=== PATIENT | male | born 1965 | race Caucasian/White ===

== ENCOUNTER 2016-08-11 18:06 | Emergency (ER) | payer MEDICAID, OTHER ==
--- NOTE | 2016-08-11 19:27 | ER PHYSICIAN DOCUMENTATION ---
Physician Documentation [facility] Name:Stalin Katz Age:50 yrs Sex:Male :1965 Arrival Date:08/11/2016 Time:18:06 Bed6 Private MD:Israel Horton ED, John Disposition: 08/11/16 19:08 Discharged to Home/Self Care. Impression: Back Sprain. - Condition is Good. - Discharge Instructions: BACK SPRAIN/STRAIN. - Prescriptions for Hydrocodone- Acetaminophen 5-325 mg Oral Tablet - take 1 tablet by ORAL route every 6 hours As needed; 20 tablet. - Medical Reconciliation form form. - Follow up: Israel Horton MD; When: 4- 6 days; Reason: Continuance of care. - Problem is new. - Symptoms have improved. HPI: 08/11 19:25 This 50 yrs old Male presents to ER via Walk In with complaints of Back Pain. jm 19:25 The patient presents with pain that is acute. The symptoms are located in the low back, jm lumbar area. Onset: The symptoms/episode began/occurred 2 day(s) ago. The pain does not radiate. Associated signs and symptoms: Pertinent negatives: dysuria, incontinence, numbness, tingling, urinary retention, weakness. The problem was sustained walking the dog and the dog jolted forward and pulled pt forward and he tweaked his back. . Modifying factors: the patient symptoms are aggravated by any movement, bending. Severity of symptoms: in the emergency department the symptoms are unchanged. The patient has experienced a previous episode, approximately 2 months ago. The patient has not recently seen a physician. Pt denies any other sx besides upper lumbar pain.. Historical: - Allergies: No known drug Allergies; - Home Meds: 1. None - PMHx: None; - PSHx: left wrist; - Tetanus: < 10 years. - Ebola Screening: : Patient denies exposure to infectious person. Patient denies travel to an Ebola-affected area in the 21 days before illness onset. . - Immunization history: Flu Vaccine None. - Social history: Smoking status: Patient states was never smoker of tobacco. Patient/guardian denies using alcohol. - Code Status:: Full code. ROS: 19:28 Constitutional: Negative for fever. jm 19:28 Back: Positive for injury or acute deformity, pain with movement. 19:28 MS/extremity: Negative for tenderness, tingling. 19:28 Neuro: Negative for tingling, weakness. 19:28 Psych: Negative for anxiety, depression. Exam: 19:28 Constitutional: The patient appears alert, awake. 19:28 Back: pain, that is very mild, of the lumbar area, Pt actual couldn't tell me if his spine hurt of if it was the muscles just lateral to the spine on both sides, but it was very mild at best. , ROM is normal. 19:28 Musculoskeletal/extremity: Extremities: all appear grossly normal, with no appreciated pain with palpation, grossly normal except: Weight bearing: able to fully bear weight. 19:28 Neuro: Motor: strength is 5/5 in all extremities, Sensation: is normal, Gait: is steady, Deep tendon reflexes are 2+ (normal) in the right patellar and left patellar. 19:28 Psych: Behavior/mood is pleasant, cooperative, Affect is calm. Vital Signs: 18:43 BP 97 / 73; Pulse 66; Resp 16; Temp 98; Pulse Ox 97% on R/A; Weight 83.91 kg; Height 6 lb ft. (182.88 cm); Pain 9/10; 18:43 Body Mass Index 25.09 (83.91 kg, 182.88 cm) lb MDM: 18:55 Patient medically screened. 19:31 Differential diagnosis: ruptured disc, spinal injury, sprain. 19:31 Data reviewed: vital signs, nurses notes, and as a result, I will discharge patient. Counseling: I had a detailed discussion with the patient and/or guardian regarding: the historical points, exam findings, and any diagnostic results supporting the discharge/admit diagnosis, the need for outpatient follow up, with the patient's primary care provider. Medication response: The patient's symptoms have improved. ED course: No red flag sx that warrant getting any imaging. Pt most likely w strain/sprain, so will have pt take NSAIDS and Vicodin PRN. . Dispensed Medications: 19:25 Drug: HYDROcodone-acetaminophen 5 mg-325 mg 2 tabs; Route: PO; lb 19:25 Follow up: Response: No adverse reaction lb Signatures: Aubrey Kirkpatrick MD MD jm Bollock, Lynda lb
--- NOTE | 2016-08-11 19:27 | ER NURSING DOCUMENTATION ---
Nurse's Notes [facility] Name:Stalin Katz Age:50 yrs Sex:Male :1965 Arrival Date:08/11/2016 Time:18:06 Bed6 Private MD:Israel Horton Diagnosis:Back Sprain Presentation: 08/11 18:41 Presenting complaint: Patient states: low back pain for 1-2 weeks. no known injury. lb Transition of care: Home. Notified ED Physician of Casimiro Newman notified. 18:41 Acuity: CARO 4 lb 18:41 Method Of Arrival: Walk In lb Triage Assessment: 18:43 General: Appears uncomfortable, Behavior is cooperative, listless. Pain: Complains of lb pain in lumbar area, left low back and right low back Pain does not radiate. Pain currently is 9 out of 10 on a pain scale. Musculoskeletal: No deficits noted. Circulation, motion, and sensation intact Capillary refill < 3 seconds. Historical: - Allergies: No known drug Allergies; - Home Meds: 1. None - PMHx: None; - PSHx: left wrist; - Tetanus: < 10 years. - Ebola Screening: : Patient denies exposure to infectious person. Patient denies travel to an Ebola-affected area in the 21 days before illness onset. . - Immunization history: Flu Vaccine None. - Social history: Smoking status: Patient states was never smoker of tobacco. Patient/guardian denies using alcohol. - Code Status:: Full code. Screenin:44 Infectious Disease Risk None. Abuse screen: Denies threats or abuse. Denies injuries lb from another. Nutritional screening: No deficits noted. Assessment: 18:44 Neuro: No deficits noted. lb Vital Signs: 18:43 BP 97 / 73; Pulse 66; Resp 16; Temp 98; Pulse Ox 97% on R/A; Weight 83.91 kg; Height 6 lb ft. (182.88 cm); Pain 9/10; 18:43 Body Mass Index 25.09 (83.91 kg, 182.88 cm) lb ED Course: 18:08 Patient arrived in ED. ama 18:08 Israel Horton MD is Private Physician. ama 18:41 Milly Thornton is Primary Nurse. lb 18:42 Triage completed. lb 18:45 Valuables Remains with patient. lb 18:55 Aubrey Kirkpatrick MD is Attending Physician. ajay 19:08 Israel Horton MD is Referral Physician. ajay Administered Medications: 19:25 Drug: HYDROcodone-acetaminophen 5 mg-325 mg 2 tabs; Route: PO; lb 19:25 Follow up: Response: No adverse reaction lb Outcome: : Discharge ordered by . ajay 19:25 Discharged to home ambulatory. lb 19:25 Condition: stable 19:25 Discharge Assessment: Patient awake, alert and oriented x 3. No cognitive and/or functional deficits noted. Patient verbalized understanding of disposition instructions. 19:25 Instructed on discharge instructions, follow up and referral plans. no drinking with medication, no driving heavy equipment. 19:26 Patient left the ED. lb Signatures: Aubrey Kirkpatrick MD MD jm Averdick, Andrew, Milly Alcantar lb
[2016-08-11] MEDS ORDERED: HYDROcodone/APAP 5/325 MG 1 TAB TABLET PO ONE (19:33)
== END 2016-08-11 19:27 | disposition home or self-care (01) ==
LOC: ER 18:06
DX: S33.8XXA Sprain of other parts of lumbar spine and pelvis, initial encounter (principal); X50.0XXA Overexertion from strenuous movement or load, initial encounter; Y92.89 Other specified places as the place of occurrence of the external cause; Y93.K1 Activity, walking an animal
CPT/HCPCS: 99283